=== PATIENT | female | born 1965 | race Caucasian/White ===

== ENCOUNTER 2020-12-10 14:45 | Emergency (ER) | payer BC ==
[~2020-12-10 14:45] MED LIST: Lactated Ringers 1,000 ML IV SCH
[2020-12-10] MEDS ORDERED: Diphtheria,Pertussis(Acell),Tetanus Vaccine 0.5 ML Syringe IM ONE (15:00)
[2020-12-10] MEDS ORDERED: Iopamidol 612 MG/ML 100 ML Bottle IVPUSH ONE (15:19)
[2020-12-10] MEDS ORDERED: Sodium Chloride 0.9% 10 ML Syringe FLUSH PRN (15:19)
[2020-12-10] MEDS ORDERED: Sodium Chloride 0.9% 45 ML IV SCH (15:30)
[2020-12-10] MEDS ORDERED: Lidocaine 1% 10 ML MDV INJECT ONE (16:21)
--- NOTE | 2020-12-10 16:29 | EDM.PDOC ---
ED HPI GENERAL MEDICAL PROBLEM - General Chief Complaint: Trauma Stated Complaint: VIA [facility] Time Seen by Provider: 12/10/20 14:45 - History of Present Illness INITIAL COMMENTS - FREE TEXT/NARRATIVE: 55-year-old female brought in by [facility] approximately an hour to an hour and a half prior to arrival patient was thrown off a horse. Patient complains of mild headache and significant leg pain. EMS reports the patient's has been asking the same questions over and over again they are concerned about the possibility of a concussion. Patient denies chest pain abdomen pain or hip pain. Patient does not entirely recall what happened she knows she was thrown from horse. According to her the patient kept asking the same questions over again. According to the the patient was horse reared back throwing her off the horse and the patient lost his footing and fell back on top of her it is unclear what part of her got hit by the horse. Patient has not demonstrated any nausea or vomiting. Left Leg Pain Score (Numeric/FACES): 7 Review of Systems - Review of Systems Review Of Systems: See Below Constitutional: Reports: No Symptoms Ears: Reports: No Symptoms Nose: Reports: No Symptoms Mouth/Throat: Reports: No Symptoms Respiratory: Reports: No Symptoms Cardiovascular: Reports: No Symptoms GI/Abdominal: Reports: No Symptoms Genitourinary: Reports: No Symptoms Musculoskeletal: Reports: Leg Pain Skin: Reports: No Symptoms Neurological: Reports: Headache ED EXAM, GENERAL - Physical Exam Exam: See Below Exam Limited By: Other (Patient is alert and oriented upon arrival GCS of 15) General Appearance: Alert, No Apparent Distress, Other Eye Exam: Bilateral Eye: EOMI, Normal Inspection, PERRL Ears: Normal External Exam, Normal Canal, Hearing Grossly Normal, Normal TMs Nose: Normal Inspection, Normal Mucosa, No Blood Throat/Mouth: Normal Inspection, Normal Lips, Normal Teeth, Normal Gums, Normal Oropharynx, Normal Voice, No Airway Compromise, Other (With careful palpation no jaw tenderness.) Head: Other (She has a swelling in the posterior scalp region). No: Facial Swelling, Facial Tenderness, Sinus Tenderness Neck: Other (Patient came in with a c-collar in place this was not removed until the C-spine was cleared by CT I did remove the c-collar patient demonstrated good range of motion of her neck without difficulty or tenderness) Respiratory/Chest: No Respiratory Distress, Lungs Clear, Normal Breath Sounds, No Accessory Muscle Use, Chest Non-Tender Cardiovascular: Regular Rate, Rhythm, No Edema, No Murmur GI/Abdominal: Normal Bowel Sounds, Soft, Non-Tender, No Organomegaly, No Distention, No Abnormal Bruit, No Mass, Pelvis Stable. No: Guarding, Rigid, Rebound, Tender Back Exam: Normal Inspection, CVA Tenderness (L), CVA Tenderness (R). No: Muscle Spasm, Paraspinal Tenderness, Vertebral Tenderness Extremities: Other (All extremities normal no tenderness. However left lower leg below the knee has some ecchymosis developing medial aspect and significant tenderness ankle is stable foot normal) Neurological: Alert, Oriented, CN II-XII Intact, Normal Cognition, Normal Reflexes, No Motor/Sensory Deficits, Other (She did not ask me repetitive questions here but this was reported out in the field and by EMS) Psychiatric: Normal Affect, Normal Mood Skin Exam: Warm, Dry, Intact ED TRAUMA PROCEDURES - Laceration/Wound Repair Face Lac/Wound Length In cm: 3 Appearance: Subcutaneous, Irregular, Other (Located in the submental area beneath the chin) Anesthetic Type: Local Local Anesthesia - Lidocaine (Xylocaine): 1% Plain Local Anesthetic Volume: 2cc Exploration/Debridement/Repair: Wound Explored, In a Bloodless Field, Explored to Base, Foreign Material Removed (Horse hair debris), Other (Few hoarse hairs were removed) Closed With: Sutures Suture Size: 4-0 # of Sutures: 9 Suture Type: Nylon, Simple Tetanus Status Addressed: Yes (She received a tetanus booster) Complications: No Course - Vital Signs Last Recorded V/S: Last Vital Signs Temp 35.6 C L 12/10/20 14:45 Pulse 75 12/10/20 14:45 Resp 12 12/10/20 14:45 BP 133/79 12/10/20 14:45 Pulse Ox 95 12/10/20 14:45 - Orders/Labs/Meds Orders: Active Orders 24 hr Category Date Time Status Vaccines to be Administered [RC] PER UNIT ROUTINE Care 12/10/20 15:00 Active Cervical Spine wo Cont [CT] Routine Exams 12/10/20 15:00 Taken Chest Abdomen Pelvis w Cont [CT] Routine Exams 12/10/20 15:00 Taken Head wo Cont [CT] Routine Exams 12/10/20 14:59 Taken Knee Min 4V Lt [CR] Routine Exams 12/10/20 15:01 Taken Tibia Fibula Lt [CR] Routine Exams 12/10/20 14:59 Taken UA W/O MICROSCOPIC [URIN] Routine Lab 12/10/20 14:53 Received Lactated Ringers [Ringers, Lactated] 1,000 ml Med 12/10/20 14:45 Active IV ASDIRECTED Sodium Chloride 0.9% [Normal Saline] 45 ml Med 12/10/20 15:30 Active IV ASDIRECTED Sodium Chloride 0.9% [Saline Flush] Med 12/10/20 15:19 Active 10 ml FLUSH ONETIME PRN Durable Medical Equipment for Discharge [DME for Oth 12/10/20 16:21 Ordered Discharge] [COMM] Stat Medication Orders Sodium Chloride (Normal Saline) 45 mls @ 40 mls/hr IV ASDIRECTED ROBERT Last Admin: 12/10/20 15:22 Dose: 40 mls/hr Documented by: ELDA Lactated Ringer's (Ringers, Lactated) 1,000 mls @ 150 mls/hr IV ASDIRECTED ROBERT Last Admin: 12/10/20 14:45 Dose: 150 mls/hr Documented by: DIANNE Sodium Chloride (Sodium Chloride 0.9% 10 Ml Syringe) 10 ml FLUSH ONETIME PRN PRN Reason: Keep Vein Open Last Admin: 12/10/20 15:22 Dose: 10 ml Documented by: ELDA Labs: Laboratory Tests 12/10/20 12/10/20 12/10/20 Range/Units 14:53 14:53 14:53 WBC 12.54 H (3.98-10.04) K/mm3 RBC 4.27 (3.98-5.22) M/mm3 Hgb 13.2 (11.2-15.7) gm/dl Hct 39.8 (34.1-44.9) % MCV 93.2 (79.4-94.8) fl MCH 30.9 (25.6-32.2) pg MCHC 33.2 (32.2-35.5) g/dl RDW Std Deviation 44.0 (36.4-46.3) fL Plt Count 290 (182-369) K/mm3 MPV 9.2 L (9.4-12.3) fl Neut % (Auto) 74.9 H (34.0-71.1) % Lymph % (Auto) 15.1 L (19.3-51.7) % Bureau % (Auto) 7.7 (4.7-12.5) % Eos % (Auto) 1.4 (0.7-5.8) Baso % (Auto) 0.4 (0.1-1.2) % Neut # (Auto) 9.41 H (1.56-6.13) K/mm3 Lymph # (Auto) 1.89 (1.18-3.74) K/mm3 Bureau # (Auto) 0.96 H (0.24-0.36) K/mm3 Eos # (Auto) 0.17 (0.04-0.36) K/mm3 Baso # (Auto) 0.05 (0.01-0.08) K/mm3 PT 9.8 (9.7-12.0) SECONDS INR < 0.93 APTT 20.5 L (21.7-31.4) SECONDS Sodium 143 (136-145) mEq/L Potassium 4.2 (3.5-5.1) mEq/L Chloride 108 H (98-107) mEq/L Carbon Dioxide 24 (21-32) mEq/L Anion Gap 15.2 H (5-15) BUN 15 (7-18) mg/dL Creatinine 0.9 (0.55-1.02) mg/dL Est Cr Clr Drug Dosing TNP Estimated GFR (MDRD) > 60 (>60) mL/min BUN/Creatinine Ratio 16.7 (14-18) Glucose 131 H (70-99) mg/dL Lactic Acid (0.4-2.0) mmol/L Calcium 8.4 L (8.5-10.1) mg/dL Total Bilirubin 0.2 (0.2-1.0) mg/dL AST 22 (15-37) U/L ALT 36 (14-59) U/L Alkaline Phosphatase 84 (46-116) U/L Total Protein 6.7 (6.4-8.2) g/dl Albumin 3.6 (3.4-5.0) g/dl Globulin 3.1 gm/dL Albumin/Globulin Ratio 1.2 (1-2) // Range/Units 14:53 WBC (3.98-10.04) K/mm3 RBC (3.98-5.22) M/mm3 Hgb (11.2-15.7) gm/dl Hct (34.1-44.9) % MCV (79.4-94.8) fl MCH (25.6-32.2) pg MCHC (32.2-35.5) g/dl RDW Std Deviation (36.4-46.3) fL Plt Count (182-369) K/mm3 MPV (9.4-12.3) fl Neut % (Auto) (34.0-71.1) % Lymph % (Auto) (19.3-51.7) % Bureau % (Auto) (4.7-12.5) % Eos % (Auto) (0.7-5.8) Baso % (Auto) (0.1-1.2) % Neut # (Auto) (1.56-6.13) K/mm3 Lymph # (Auto) (1.18-3.74) K/mm3 Bureau # (Auto) (0.24-0.36) K/mm3 Eos # (Auto) (0.04-0.36) K/mm3 Baso # (Auto) (0.01-0.08) K/mm3 PT (9.7-12.0) SECONDS INR APTT (21.7-31.4) SECONDS Sodium (136-145) mEq/L Potassium (3.5-5.1) mEq/L Chloride (98-107) mEq/L Carbon Dioxide (21-32) mEq/L Anion Gap (5-15) BUN (7-18) mg/dL Creatinine (0.55-1.02) mg/dL Est Cr Clr Drug Dosing Estimated GFR (MDRD) (>60) mL/min BUN/Creatinine Ratio (14-18) Glucose (70-99) mg/dL Lactic Acid 1.7 (0.4-2.0) mmol/L Calcium (8.5-10.1) mg/dL Total Bilirubin (0.2-1.0) mg/dL AST (15-37) U/L ALT (14-59) U/L Alkaline Phosphatase (46-116) U/L Total Protein (6.4-8.2) g/dl Albumin (3.4-5.0) g/dl Globulin gm/dL Albumin/Globulin Ratio (1-2) Meds: Medications Generic Name Dose Route Start Last Admin Trade Name Freq PRN Reason Stop Dose Admin Sodium Chloride 45 mls @ 40 mls/hr 12/10/20 15:30 12/10/20 15:22 Normal Saline IV 40 mls/hr ASDIRECTED ROBERT Administration Lactated Ringer's 1,000 mls @ 150 mls/hr 12/10/20 14:45 12/10/20 14:45 Ringers, Lactated IV 150 mls/hr ASDIRECTED ROBERT Administration Sodium Chloride 10 ml 12/10/20 15:19 12/10/20 15:22 Sodium Chloride 0.9% 10 Ml Syringe FLUSH 10 ml ONETIME PRN Administration Keep Vein Open Discontinued Medications Generic Name Dose Route Start Last Admin Trade Name Freq PRN Reason Stop Dose Admin Diphtheria/Tetanus/Acell Pertussis 0.5 ml 12/10/20 15:00 12/10/20 16:37 Diphtheria,Pertussis(Acell),Tetanus Vaccine 0.5 Ml Syringe IM 12/10/20 15:01 0.5 ml .ONCE ONE Administration Iopamidol 100 ml 12/10/20 15:19 12/10/20 15:22 Iopamidol 612 Mg/Ml 100 Ml Bottle IVPUSH 12/10/20 15:20 100 ml ONETIME ONE Administration Lidocaine HCl 10 ml 12/10/20 16:21 12/10/20 16:39 Lidocaine 1% 10 Ml Mdv INJECT 12/10/20 16:22 10 ml ONETIME ONE Administration - Re-Assessments/Exams Free Text/Narrative Re-Assessment/Exam: 12/10/20 16:22 Early in the patient's evaluation she was gently logrolled off the backboard backboard removed we moved the patient demonstrated no spinous process discomfort all the way from the lower cervical spine down to the sacrum. Breath sounds were heard better this way and found to be very clear equal bilaterally. No evidence of back trauma bruising or ecchymosis. Head CT is significant for a small 2.5 mm acute subdural hemorrhage along the right aspect of the posterior falx. Cervical spine is unremarkable no acute changes noted to chest abdomen or pelvis. There is some chronic changes consistent with fatty liver in the abdomen and hepatic cyst. X-ray of the left lower leg is consistent with a proximal tibial fracture probable tibial plateau fracture no obvious fracture seen in the proximal fibula. Case was discussed with Dr. Bhardwaj emergency room physician at [facility] in [place] who kindly accepts the patient also reviewed neurosurgical situation with Dr. Solitario and the leg fracture with Dr. Zarco. Dr. Zarco did advise putting the patient in a knee immobilizer at this time. We are working on transfer unfortunately no ground transportation will be available for several hours we are looking at flight. Departure - Departure Time of Disposition: 16:24 Disposition: DC/Tfer to [facility] 02 Clinical Impression: Subdural hematoma, Left tibial fracture - Discharge Information Referrals: PCP,None [Primary Care Provider] - Forms: ED Department Discharge Sepsis Event Note (ED) - Evaluation Sepsis Screening Result: No Definite Risk - Focused Exam Vital Signs: Vital Signs Temp Pulse Resp BP Pulse Ox 12/10/20 14:45 35.6 C L 75 12 133/79 95 - My Orders Last 24 Hours: My Active Orders 12/10/20 14:45 Lactated Ringers [Ringers, Lactated] 1,000 ml IV ASDIRECTED 12/10/20 15:00 Vaccines to be Administered [RC] PER UNIT ROUTINE 12/10/20 15:19 Sodium Chloride 0.9% [Saline Flush] 10 ml FLUSH ONETIME PRN 12/10/20 15:30 Sodium Chloride 0.9% [Normal Saline] 45 ml IV ASDIRECTED 12/10/20 16:21 Durable Medical Equipment for Discharge [DME for Discharge] [COMM] Stat - Assessment/Plan Last 24 Hours: My Active Orders 12/10/20 14:45 Lactated Ringers [Ringers, Lactated] 1,000 ml IV ASDIRECTED 12/10/20 15:00 Vaccines to be Administered [RC] PER UNIT ROUTINE 12/10/20 15:19 Sodium Chloride 0.9% [Saline Flush] 10 ml FLUSH ONETIME PRN 12/10/20 15:30 Sodium Chloride 0.9% [Normal Saline] 45 ml IV ASDIRECTED 12/10/20 16:21 Durable Medical Equipment for Discharge [DME for Discharge] [COMM] Stat
--- NOTE | 2020-12-11 08:46 | CT ---
CT chest Technique: Multiple axial sections of the chest were obtained. Intravenous contrast was utilized. Reconstructed coronal and sagittal images were obtained. Comparison: No prior chest imaging is available. Findings: Thoracic aorta shows no aneurysm. Normal variant arterial origination is seen off the aorta. Mediastinum and hilar regions show no adenopathy. No pericardial thickening is appreciated. Minimal dependent atelectasis is noted which is within normal limits. Small oblong nodule is noted close to the minor fissure within the right middle lobe measuring about 7 mm. Lungs otherwise are clear. No acute parenchymal change is seen. Bone window settings were reviewed which show no acute osseous abnormality. Prior right shoulder surgery is noted. Impression: 1. Cowdrey nodule within the right middle lobe close to the minor fissure which most likely is benign. 2. No acute abnormality is appreciated on CT study of the chest. Diagnostic code #2 I agree with preliminary report from [facility], finalized on 12/10/20, 4:40 PM CDT, code 1 CT abdomen and pelvis Technique: Multiple axial sections were obtained from above the dome of the diaphragm inferiorly through the pubic symphysis. Intravenous contrast was utilized. Delayed images were also obtained. Reconstructed coronal and sagittal images were obtained. Comparison: No prior CT abdomen or pelvis study is available. Findings: Cystic area is noted within the posterior right lobe of the liver which measures about 1.6 cm in size and is felt compatible with a small liver cyst. Liver is otherwise within normal limits. Spleen appears within normal limits. Small amount of accessory splenic tissue is noted off the anterior spleen. Adrenal glands show no nodule. Pancreas appears within normal limits. Gallbladder contains no calcified gallstones. Kidneys show symmetric contrast enhancement. Two cystic areas are seen within the left kidney. Largest cyst measures approximately 2.1 cm. Delayed images show contrast excretion from both kidneys into nondilated ureters as well as contrast being seen within the bladder. Abdominal aorta shows no aneurysm. No retroperitoneal adenopathy or mesenteric abnormalities are seen. No pelvic mass or adenopathy is appreciated. Appendix is seen which is normal in size. No free fluid or inflammatory change is appreciated. Prior hysterectomy is noted. Bone window settings were reviewed which show mild degenerative change within the lower lumbar spine. No acute osseous abnormality is appreciated. Partial transitional segment is seen at the lumbosacral junction with pseudoarticulation of an enlarged right transverse process to the sacrum. Impression: 1. Findings as noted above which are nonacute. 2. Nothing acute is seen on CT study of the abdomen and pelvis. Diagnostic code #2 I agree with preliminary report from [place], finalized on 12/10/20, 4:47 PM CDT, code 1
--- NOTE | 2020-12-11 09:28 | CT ---
Head CT Technique: Multiple axial sections through the brain were obtained. Intravenous contrast was not utilized. Comparison: No prior intracranial imaging is available. Findings: Ventricles along with basal cisterns and sulci over the convexities are within normal limits for the patient's age. No abnormal parenchymal densities are seen. No evidence of intracranial hemorrhage is seen. No midline shift or mass-effect is seen. Minimal thickening is seen next to the posterior falx compatible with a minimal amount of extra-axial blood. This small amount of blood measures less than 2 mm in thickness. No other evidence of intracranial blood. Bone window settings were reviewed which show a small retention cyst within the left maxillary sinus. No acute calvarial abnormality is seen. Visualized mastoid sinuses show nothing acute. Impression: 1. Minimal blood in extra-axial position adjacent to the posterior falx. This is most likely be incidental. 2. No acute intracranial abnormality is appreciated. 3. Minimal retention cyst within the left maxillary sinus. Diagnostic code #3 I agree with preliminary report from [facility], finalized on 12/10/20, 4:33 PM CDT, code 1
--- NOTE | 2020-12-11 09:40 | CR ---
Left knee: 4 views of the left knee were obtained. Comparison: No prior knee study is available. Fracture is identified within the proximal tibia. This fracture extends from the proximal diaphysis through the metaphysis and shows epiphyseal extension. Very minimal depression of the medial tibial plateau is seen. Diffuse soft tissue swelling is noted. No additional abnormality is appreciated. Impression: 1. Mildly displaced proximal tibial fracture as noted above. 2. Soft tissue swelling. Diagnostic code #3
--- NOTE | 2020-12-11 09:41 | CR ---
Left tibia and fibula: 2 views of the left tibia and fibula were obtained. Comparison: No prior tibia or fibula study is available. Prior knee study performed on the same day. Fracture is seen within the proximal diaphysis of the tibia with extension into the metaphysis and epiphysis. Mild displacement is seen. Soft tissue swelling noted. No additional fracture or other bony abnormality is appreciated. Impression: 1. Proximal tibial fracture as described above. Soft tissue swelling. 2. Left tibia and fibula study are otherwise unremarkable. Diagnostic code #3
--- NOTE | 2020-12-11 09:50 | CT ---
CT cervical spine Technique: Multiple axial sections were obtained from above C1 inferiorly to the bottom of T3. Reconstructed coronal and sagittal images were obtained. Comparison: No previous cervical spine imaging is available. Findings: Mild disc space narrowing at C4-5. Mild spondylolisthesis is noted at C4-5. Fairly prominent disc space narrowing at C5-6 and C6-7. Posterior osteophytes are seen at C5-6 and C6-7 as well as anterior osteophytes. Scattered degenerative apophyseal change is noted. No bony central or bony neural foraminal stenosis is seen. No acute fracture is seen. Impression: 1. Degenerative change as noted above. 2. No acute abnormality is appreciated on CT study of the cervical spine. Diagnostic code #2 I agree with preliminary report from [facility], finalized on 12/10/20, 4:36 PM CDT, code 1
== END 2020-12-10 17:25 ==
LOC: JD.ED 14:45
DX: S06.5X9A Traumatic subdural hemorrhage with loss of consciousness of unspecified duration, initial encounter (principal); S82.102A Unspecified fracture of upper end of left tibia, initial encounter for closed fracture; S01.81XA Laceration without foreign body of other part of head, initial encounter; S80.02XA Contusion of left knee, initial encounter; Z23 Encounter for immunization; V80.010A Animal-rider injured by fall from or being thrown from horse in noncollision accident, initial encounter
CPT/HCPCS: 12013; 36415; 70450; 71260; 72125; 73564; 73590; 74177; 80053; 83605; 85025; 85610; 85730; 90471; 90715; 99285; J7120; Q9967